=== PATIENT | female | born 1995 | race African-American/Black ===

== ENCOUNTER 2024-12-23 11:21 | Emergency (ER) | payer MEDICAID ==
[~2024-12-23] VITALS: Ht 162.6 cm; Wt 64.0 kg
[2024-12-23 11:23] VITALS: TEMP 36.9; O2SAT 99
[2024-12-23] MEDS ORDERED: DICYCLOMINE HCL 10MG/ML 2ML VIAL IM STA (12:04)
[2024-12-23 12:31] LABS: BASOPHILS % 0.3 % (0.0-2.0); EOSINOPHILS % 1.7 % (0.0-5.0); HEMATOCRIT. 34.5 % (36.0-48.0); HEMOGLOBIN. 11.1 g/dL (12.0-16.0); LYMPHOCYTES % 8.5 % (20.0-50.0); MEAN CORPUSCULAR HEMOGLOBIN 30.1 pg (28.0-32.0); MEAN CORPUSCULAR HGB CONC 32.2 g/dL (31.0-37.0); MEAN CORPUSCULAR VOLUME 93.5 fL (81.0-99.0); MEAN PLATELET VOLUME 6.5 fl (7.4-10.4); MONOCYTES % 9.2 % (2.0-8.0); NEUTROPHILS % 80.3 % (40.0-76.0); PLATELET 336 x1000/uL (130-400); RED BLOOD CELL COUNT 3.69 mill/uL (4.2-5.4); RED CELL DISTRIBUTION WIDTH 12.8 % (11.6-14.6); WHITE BLOOD COUNT 12.1 x1000/uL (4.5-11.0)
[2024-12-23] MEDS: DICYCLOMINE HCL 10MG CAPSULE PO NR (12:36)
[2024-12-23] MEDS: ONDANSETRON 4MG ODT PO ONE (12:36)
[2024-12-23 12:40] LABS: CHLORIDE 104 mEq/L (98-107); POTASSIUM 3.6 mEq/L (3.5-5.1); SODIUM 137 mEq/L (136-145)
[2024-12-23 12:41] LABS: CALCIUM 8.9 mg/dL (8.7-10.4); CARBON DIOXIDE 26 mEq/L (21-32)
[2024-12-23 12:43] LABS: HCG SCREEN NEGATIVE
[2024-12-23 12:46] LABS: CREATININE 0.7 mg/dL (0.6-1.0); GLUCOSE 95 mg/dL (70-105); UREA NITROGEN BLOOD 9 mg/dL (9-23)
[2024-12-23 12:47] LABS: ALANINE AMINOTRANSFERASE 12 IU/L (10-49)
[2024-12-23 12:48] LABS: ALBUMIN 3.6 g/dL (3.2-4.8); ASPARTATE AMINOTRANSFERASE 14 IU/L (<34); BILIRUBIN DIRECT 0.2 mg/dL (<=3.0); BILIRUBIN TOTAL 0.4 mg/dL (0.1-1.0); PROTEIN TOTAL 6.6 g/dL (6.0-8.3)
[2024-12-23 12:53] LABS: CLARITY URINE CLOUDY (CLEAR); COLOR URINE YELLOW (YELLOW); GLUCOSE URINE NEGATIVE (NEGATIVE); KETONES URINE TRACE (NEGATIVE); LEUKOCYTE ESTERASE URINE 3+ (NEGATIVE); NITRITE URINE NEGATIVE (NEGATIVE); OCCULT BLOOD URINE NEGATIVE (NEGATIVE); PROTEIN URINE TRACE (NEGATIVE); SPECIFIC GRAVITY URINE 1.028 (1.005-1.030)
[2024-12-23 13:10] LABS: MUCUS URINE 3+ /lpf (< = 2+); SQUAMOUS EPITHELIAL CELL URINE 2+ /lpf (RARE/1+)
[2024-12-23 13:11] LABS: WBC URINE 50-100 /hpf (0-2)
[2024-12-23 13:14] LABS: BACTERIA URINE 4+
[2024-12-23] MEDS ORDERED: SULF1TAB48 MT (13:47)
[2024-12-23] MEDS ORDERED: PYR200 MT (13:47)
[2024-12-23] MEDS ORDERED: DICY20TA2 MT (13:47)
[2024-12-23 13:58] VITALS: BP 114/57; PULSE 85; RESP 14; O2SAT 97
== END 2024-12-23 14:04 | disposition home or self-care (01) ==
LOC: ER 11:21
DX: N39.0 Urinary tract infection, site not specified (principal); R10.9 Unspecified abdominal pain
CPT/HCPCS: 99283; 80076; 80048; 81003; 81025; 84703; 83690; 85025; 87086; 36415; Q0162; J0500